=== PATIENT | male | born 1990 | race Caucasian/White ===

== ENCOUNTER 2019-07-18 00:27 | Emergency (ER) | payer OTHER ==
[~2019-07-18] VITALS: Ht 175.3 cm; Wt 75.0 kg
[~2019-07-18 00:27] MED LIST: LORTAB 5-325 MG1 TAB PO; NAPROSYN500 MG PO; NAPROXEN500 MG OR; NO MEDS; ULTRAM50 MG OR
[2019-07-18] MEDS ORDERED: VOLTAREN - GENE75 MG PO (01:51)
[2019-07-18 02:00] VITALS: BP 112/76
== END 2019-07-18 02:30 | disposition home or self-care (01) | DRG 605 ==
LOC: ED 00:27
PROC: 0HQKXZZ Repair Right Lower Leg Skin, External Approach (ICD-10-PCS; principal; 2019-07-18)
PROC: 2W3FX1Z Immobilization of Left Hand using Splint (ICD-10-PCS; 2019-07-18)
DX: S81.011A Laceration without foreign body, right knee, initial encounter (principal); S62.305A Unspecified fracture of fourth metacarpal bone, left hand, initial encounter for closed fracture; S80.212A Abrasion, left knee, initial encounter; T14.8XXA Other injury of unspecified body region, initial encounter; V47.5XXA Car driver injured in collision with fixed or stationary object in traffic accident, initial encounter

== ENCOUNTER 2020-08-19 11:05 | Emergency (ER) | payer SELFPAY ==
[~2020-08-19] VITALS: Ht 175.3 cm; Wt 81.0 kg
[~2020-08-19 11:05] MED LIST changes: +VOLTAREN - GENE75 MG PO
[2020-08-19] MEDS ORDERED: HYDROCO/APAP1 TA9 PO (12:12)
[2020-08-19 12:23] VITALS: BP 145/84
== END 2020-08-19 12:24 | disposition home or self-care (01) | DRG 563 ==
LOC: ED 11:05
DX: S42.022A Displaced fracture of shaft of left clavicle, initial encounter for closed fracture (principal); V86.55XA Driver of 3- or 4- wheeled all-terrain vehicle (ATV) injured in nontraffic accident, initial encounter